=== PATIENT | male | born 1995 | race Caucasian/White ===

== ENCOUNTER 2017-02-23 13:26 | Emergency (ER) | payer MEDICAID ==
[~2017-02-23] VITALS: Ht 152.4 cm; Wt 70.0 kg
[~2017-02-23 13:26] MED LIST: AUGMENTIN400 MG/5 M OR; NO HOME MEDS; TRIAMIN16 OR
[2017-02-23 14:15] VITALS: BP 119/62
== END 2017-02-23 14:15 | disposition left against medical advice (07) | DRG 951 ==
LOC: ED 13:26 → LWOBS 14:15
DX: Z91.19 Patient's noncompliance with other medical treatment and regimen (principal)

== ENCOUNTER 2022-08-30 23:35 | Emergency (ER) | payer SELFPAY ==
[~2022-08-30] VITALS: Ht 152.4 cm; Wt 80.0 kg
[2022-08-31] VITALS (11 sets, daily range): BP systolic 106–131; BP diastolic 61–80
[2022-08-31 00:35] LABS: HEMOGLOBIN 12.4 g/dl (14.0-18.0); IMMATURE GRANULOCYTES 0.6 % (0.0-5.0); MEAN CORPUSCULAR HGB 30.5 pG CALC (26.0-32.0); MEAN CORPUSCULAR HGB CONC 36.5 g/dL CAL (32.0-36.0); NEUT# 6.44 thou/uL (1.82-7.42); RED BLOOD COUNT 4.07 mill/uL (4.70-6.10); RED CELL DISTRI WIDTH 18.9 % (11.5-15.5)
[2022-08-31 00:38] LABS: MEAN CELL VOLUME 83.5 fL CALC (80.0-100.0)
[2022-08-31 00:49] LABS: ALKALINE PHOSPHATASE 101 u/l (38-126); AMYLASE 61 u/l (30-110); ANION GAP 15 (6-22 (CALC)); BUN 22 mg/dL (9-20); BUN/CREATININE RATIO 22 (12-20 (CALC)); CARBON DIOXIDE 29 mmol/l (22-30); CHLORIDE 100 mmol/l (95-108); GFR FOR AFR.AMER. > 60 ML/MIN (>=60 (CALC)); GFR OTHER RACES > 60 ML/MIN (>=60 (CALC)); LIPASE 35 u/l (23-300); POTASSIUM 3.5 mmol/l (3.5-5.1); SODIUM 140 mmol/l (137-146); TOTAL PROTEIN 8.2 g/dL (6.3-8.2)
[2022-08-31 00:51] LABS: BILIRUBIN, TOTAL 19.5 mg/dL (0.0-1.4); SGOT/AST 263 u/l (17-59)
[2022-08-31 01:14] LABS: URINE BLOOD DIPSTICK NEGATIVE (NEGATIVE); URINE GLUCOSE - DIPSTICK 100 mg/dL (NEGATIVE); URINE KETONE TRACE mg/dL (NEGATIVE); URINE PROTEIN - DIPSTICK TRACE mg/dL (NEG-TRACE); URINE SPECIFIC GRAVITY 1.025
[2022-08-31 01:20] LABS: URINE COLOR AMBER
[2022-08-31 01:21] LABS: URINE BILIRUBIN - DIPSTICK LARGE (NEGATIVE); URINE EPITHELIAL CELLS FEW EPI/hpf (0-FEW); URINE LEUK ESTERASE NEGATIVE (NEGATIVE); URINE NITRITE - DIPSTICK POSITIVE (Negative); URINE RBC 0-2 RBC/hpf (0-5)
[2022-08-31 01:22] LABS: URINE BACTERIA MODERATE hpf
== END 2022-08-31 05:19 | disposition short-term general hospital (02) | DRG 446 ==
LOC: ED 23:35
PROVIDERS: Emergency Medicine
DX: K80.00 Calculus of gallbladder with acute cholecystitis without obstruction (principal)
CPT/HCPCS: Q9967

== ENCOUNTER 2022-12-13 16:52 | Emergency (ER) | payer BC ==
[2022-12-13] VITALS (15 sets, daily range): BP systolic 102–149; BP diastolic 34–98
[~2022-12-13] VITALS: Ht 152.4 cm; Wt 72.0 kg
[2022-12-13 18:02] LABS: BASO% 0.2 % (0-3); EOS% 0.1 % (0-8); IMMATURE GRANULOCYTES 0.3 % (0.0-5.0); LYMPH% 6.3 % (15-41); MEAN CELL VOLUME 82.8 fL CALC (80.0-100.0); MEAN CORPUSCULAR HGB 29.1 pG CALC (26.0-32.0); MEAN CORPUSCULAR HGB CONC 35.1 g/dL CAL (32.0-36.0); MONO% 2.9 % (2-13); NEUT# 17.36 thou/uL (1.82-7.42); NEUT% 90.2 % (42-76); RED BLOOD COUNT 4.95 mill/uL (4.70-6.10); RED CELL DISTRI WIDTH 18.8 % (11.5-15.5)
[2022-12-13 18:08] LABS: HEMOGLOBIN 14.4 g/dl (14.0-18.0)
[2022-12-13 18:19] LABS: ALBUMIN 5.5 g/dL (3.2-5.0); ALKALINE PHOSPHATASE 56 u/l (38-126); ANION GAP 18 (6-22 (CALC)); BUN 19 mg/dL (9-20); BUN/CREATININE RATIO 20 (12-20 (CALC)); CARBON DIOXIDE 25 mmol/l (22-30); CHLORIDE 101 mmol/l (95-108); GFR FOR AFR.AMER. > 60 ML/MIN (>=60 (CALC)); GFR OTHER RACES > 60 ML/MIN (>=60 (CALC)); LIPASE 31 u/l (23-300); POTASSIUM 3.6 mmol/l (3.5-5.1); SODIUM 141 mmol/l (137-146); TOTAL PROTEIN 8.8 g/dL (6.3-8.2)
[2022-12-13 18:22] LABS: BILIRUBIN, TOTAL 4.6 mg/dL (0.2-1.3); SGOT/AST 39 u/l (17-59)
[2022-12-13 19:07] LABS: URINE BLOOD DIPSTICK NEGATIVE (NEGATIVE); URINE GLUCOSE - DIPSTICK NEGATIVE (NEGATIVE); URINE KETONE 40 mg/dL (NEGATIVE); URINE LEUK ESTERASE NEGATIVE (NEGATIVE); URINE PROTEIN - DIPSTICK NEGATIVE (NEG-TRACE); URINE SPECIFIC GRAVITY >=1.030; URINE UROBILINOGEN - DIPSTICK 0.2 E.U./dL (0.2)
[2022-12-13 19:14] LABS: URINE BILIRUBIN - DIPSTICK SMALL (NEGATIVE); URINE COLOR DK. YELLOW; URINE NITRITE - DIPSTICK NEGATIVE (Negative)
[2022-12-14 04:47] VITALS: BP 103/35
== END 2022-12-14 04:56 | disposition short-term general hospital (02) | DRG 446 ==
LOC: ED 16:52
PROVIDERS: Nurse Practitioner
DX: K80.00 Calculus of gallbladder with acute cholecystitis without obstruction (principal); R10.9 Unspecified abdominal pain
CPT/HCPCS: Q9967; S0164